=== PATIENT | female | born 1980 | race Two or more races ===

== ENCOUNTER → 2019-05-07 | Outpatient (CLI) | payer OTHER | END | disposition home or self-care (01) | LOC: LAB 09:39 | PROVIDERS: ATTEND Preventive Medicine Preventive Medicine/Occupational Environmental Medicine | DX: Z02.1 Encounter for pre-employment examination (principal) | CPT/HCPCS: 36415; 86706; 86735; 86762; 86765; 86787 ==

== ENCOUNTER 2019-09-27 11:37 | Emergency (ER) | payer OTHER ==
[~2019-09-27] VITALS: Ht 157.5 cm; Wt 62.6 kg
[2019-09-27] MEDS ORDERED: SODIUM CHLORIDE 0.9% 500 ML IV ONE (11:48)
[2019-09-27] MEDS ORDERED: KETOROLAC TROMETH 15 mg/ml 1ML VL IV ONE (12:00)
[2019-09-27] MEDS ORDERED: CLINDAMYCIN 600MG IV 50 ML IV ONE (12:00)
[2019-09-27 12:13] LABS: Basophils # (auto) 0 10 ^3/uL (0-0.2); Eosinophils # (auto) 0 10 ^3/uL (0-0.8); Monocytes # (auto) 0.7 10 ^3/uL (0-1.3); Nucleated Red Blood Cells % 0.1 %; White Blood Cell 8.4 10^3/uL (4.4-10.8)
[2019-09-27 12:14] LABS: Basophils % (auto) 0.6 % (0.0-2.0); Eosinophils % (auto) 0.6 % (0.0-7.0); Hematocrit 40.7 % (36.0-46.0); Hemoglobin 13.7 g/dL (12.2-16.2); Lymphocytes # (auto) 1.5 10 ^3/uL (0.4-5.4); Lymphocytes % (auto) 17.5 % (10.0-50.0); Mean Corpuscular Hemoglobin 26.5 pg (28.0-32.0); Mean Corpuscular Hgb Conc. 33.6 g/dL (32.0-36.0); Mean Corpuscular Volume 78.8 fL (80.0-100.0); Monocytes % (auto) 8.1 % (0.0-12.0); Neutrophils # (auto) 6.1 10 ^3/uL (1.6-8.6); Neutrophils % (auto) 73.2 % (37.0-80.0); Platelet Count (auto) 413 10^3/uL (140-450); Red Blood Cells 5.16 10^6/uL (4.0-5.20); Red Cell Distribution Width 15.9 % (11.8-14.3)
[2019-09-27 12:47] LABS: Albumin 3.2 g/dL (3.4-5.0); BUN/Creatinine Ratio 12.6; Calcium 9.4 mg/dL (8.5-10.1); Potassium 3.4 mmol/L (3.5-5.1)
[2019-09-27 12:49] LABS: Bilirubin, Total 0.4 mg/dL (0.2-1.0); Total Protein 8.2 g/dL (6.4-8.2)
[2019-09-27 14:57] VITALS: BP 105/55
== END 2019-09-27 15:11 | disposition short-term general hospital (02) ==
LOC: ER 11:37
DX: L03.115 Cellulitis of right lower limb (principal); V28.0XXA Motorcycle driver injured in noncollision transport accident in nontraffic accident, initial encounter; Y93.9 Activity, unspecified; Y99.8 Other external cause status; Y92.9 Unspecified place or not applicable
CPT/HCPCS: 36415; 80053; 85025; 85652; 93971; 96365; 96375; 99285; J1885; J3490; J7040

== ENCOUNTER → 2020-02-25 | Outpatient (CLI) | payer OTHER | END | disposition home or self-care (01) | LOC: LAB 17:04 | PROVIDERS: ATTEND Nurse Practitioner Family | DX: Z03.818 Encounter for observation for suspected exposure to other biological agents ruled out (principal) ==

== ENCOUNTER → 2020-07-17 | Outpatient (CLI) | payer OTHER | END | disposition home or self-care (01) | LOC: LAB 17:56 | PROVIDERS: ATTEND Nurse Practitioner Family | DX: U07.1 COVID-19 (principal) | CPT/HCPCS: 36415; C9803; U0003; 87426 ==